=== PATIENT | male | born 1960 | race Hispanic/Latino ===

== ENCOUNTER 2017-10-31 07:13 | Day surgery (SDC) | payer BC ==
--- OUTSIDE RECORDS SUMMARY | 2017-10-31 07:17 | XMS REPORT ---
:1960 Author Organization eClinicalWorks Care Team Providers Name Role Phone Daniel Hebert Provider Role Unavailable Allergies, Adverse Reactions, Alerts Substance Reaction Event Type N.K.D.A. 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 73958042586 12.5 MG Orally Aug 12, Active 1 tablet Once a day 2017 in the morning Aspir-[address] [facility] 04731136936 81 MG Orally Active 1 tablet Once a day Lisinopril [facility] 35841409190 10 MG Orally Active 1 tablet Once a day Simvastatin [place] 05401042781 40 MG Orally Active 1 tablet Once a day in the evening Results No Known Results Summary Purpose eClinicalWorks Submission
--- OUTSIDE RECORDS SUMMARY | 2017-10-31 07:17 | XMS REPORT ---
:1960 Author Organization eClinicalWorks Care Team Providers Name Role Phone Lefty Tejeda Provider Role Unavailable Allergies, Adverse Reactions, Alerts Substance Reaction Event Type N.K.D.A. 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 77460196914 10 MG Orally Active 1 tablet Once a day Hydrochlorothiazide [facility] 74542845262 12.5 MG Orally b , Active 1 tablet Once a day 2018 in the morning Aspir-81 [facility] 33087352746 81 MG Orally Active 1 tablet Once a day Simvastatin [facility] 52276536300 40 MG Orally Active 1 tablet Once a day in the evening Results No Known Results Immunizations Vaccine Administration Date Pneumovax September 26, 2017 TDAP > 7 Years-Adacel September 26, 2017 Summary Purpose eClinicalWorks Submission
[2017-10-31] MEDS ORDERED: Ringers Lactate 1,000 ML IV ONE (07:57)
[2017-10-31] MEDS ORDERED: PROPOFOL 200 MG/20 ML VIAL IV ONE (09:01)
[2017-10-31] MEDS ORDERED: LIDOCAINE 1% MPF 5 ML VIAL ONE (09:01)
--- NOTE | 2017-10-31 09:23 | ENDO RPT ---
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 ESTIMATED BLOOD LOSS: None CONSENT: The patient understands the risks and benefits of the procedure and understands that these risks include, but are not limited to: sedation, allergic reaction, infection, perforation and/or bleeding. Alternative means of evaluation and treatment include, among others: physical exam, x-rays, and/or surgical intervention. The patient elects to proceed with this endoscopic procedure. DESCRIPTION OF PROCEDURE: During intra-op preparation period all mechanical medical equipment was checked for proper function. Hand hygiene and appropriate measures for infection prevention was taken. Procedure, possible complications, alternatives including, but not limited to possibility of bleeding, perforation, tear, infection, sepsis, need for surgery, need for blood transfusion, were explained to the patient. After the risks, benefits and alternatives of the procedure were thoroughly explained, Informed consent was verified, confirmed and timeout was successfully executed by the treatment team. The patient was placed in the left lateral position. A digital rectal exam was performed and revealed internal hemorrhoids. After appropriate level of anesthesia, the scope was passed. The EC-[id number] ([id number]) endoscope was introduced through the anus and advanced to the cecum, which was identified by both the appendix and ileocecal valve. The quality of the prep was fair. The instrument was then slowly withdrawn as the colon was fully examined. Scope withdrawal time was 9 minutes. COLON FINDINGS: A small smooth sessile polyp with a friable surface was found in the right colon. A polypectomy was performed with cold forceps. The resection was complete, the polyp tissue was completely retrieved and sent to histology. Small internal hemorrhoids were found. Retroflexed views revealed no abnormalities. The scope was then completely withdrawn from the patient and the procedure terminated. ADVERSE EVENTS: There were no complications. IMPRESSIONS: 1. Small sessile polyp was found in the right colon; polypectomy was performed with cold forceps 2. Small internal hemorrhoids RECOMMENDATIONS: 1. await biopsy results 2. avoid NSAIDS for 2 weeks 3. fiber rich diet 4. follow-up: office 2 week(s) 5. hemorrhoidal hygiene RECALL: Return in 5 year(s) for Colonoscopy, pending biopsy results. Daniel Hebert DR eSigned: Daniel Hebert DR 10/31/2017 9:22 AM cc: CPT CODES: ICD9 CODES: PATIENT NAME: Ricardo Matias MR#: [id number]
== END 2017-10-31 10:10 | disposition home or self-care (01) ==
LOC: ENDO 07:13
PROVIDERS: ATTEND Surgery
PROC: 0DBF8ZX Excision of Right Large Intestine, Via Natural or Artificial Opening Endoscopic, Diagnostic (ICD-10-PCS; principal; 2017-10-31 09:15)
DX: Z12.11 Encounter for screening for malignant neoplasm of colon (principal); K63.5 Polyp of colon; K64.8 Other hemorrhoids; I10 Essential (primary) hypertension; E78.2 Mixed hyperlipidemia; E78.00 Pure hypercholesterolemia, unspecified; F17.210 Nicotine dependence, cigarettes, uncomplicated; Z79.82 Long term (current) use of aspirin
CPT/HCPCS: 88305